=== PATIENT | male | born 1995 | race Caucasian/White ===

== ENCOUNTER 2017-01-23 10:41 | Emergency (ER) | payer OTHER ==
[~2017-01-23 10:41] MED LIST: 'PARAFON FORTE500 M1 PO; AMOXICILLIN500 MG PO; CLEOCIN150 MG PO; CLINDAMYCIN HC300 MG PO; CYCLOBENZAPRINE10 MG PO; CYCLOBENZAPRINE5 M3 PO; EC NAPROSYN500 MG PO; HYDROCODONE BIT1 T11 PO; LIDOCAINE VISC100 ML MM; MOTRIN800 MG PO; Motrin,Rufen800 MG PO; NAPROSYN500 MG PO; NKHM; NKHM PO; PEN-VEE K500 MG PO; PENICILLIN VK500 MG PO; PENICILLIN250 MG PO; Peridex 473 ML473 ML PO; TYLENOL500 MG PO; ULTRAM50 MG PO; VICODIN 5/500 505 MG PO; VOLTAREN50 MG PO
[2017-01-23] MEDS ORDERED: Peridex 473 ML473 ML PO (10:47)
[2017-01-23] MEDS ORDERED: NAPROSYN500 MG PO (10:47)
[2017-01-23] MEDS ORDERED: CLINDAMYCIN150 MG PO (10:47)
[2017-01-23] MEDS ORDERED: LIDOCAINE HCL100 M1 MM (10:47)
== END 2017-01-23 11:17 | disposition home or self-care (01) ==
LOC: ED 10:41
DX: K02.9 Dental caries, unspecified (principal); R03.0 Elevated blood-pressure reading, without diagnosis of hypertension; F17.200 Nicotine dependence, unspecified, uncomplicated; Z88.0 Allergy status to penicillin; Z88.6 Allergy status to analgesic agent

== ENCOUNTER 2017-04-30 10:44 | Emergency (ER) | payer OTHER ==
[~2017-04-30 10:44] MED LIST changes: +CLINDAMYCIN150 MG PO; +LIDOCAINE HCL100 M1 MM
== END 2017-04-30 12:38 | disposition home or self-care (01) ==
LOC: ED 10:44
DX: M54.2 Cervicalgia (principal); R51 Headache; Z53.21 Procedure and treatment not carried out due to patient leaving prior to being seen by health care provider; V49.59XA Passenger injured in collision with other motor vehicles in traffic accident, initial encounter; Y93.89 Activity, other specified; Y92.413 State road as the place of occurrence of the external cause; Y99.8 Other external cause status